=== PATIENT | male | born 1995 | race African-American/Black ===

== ENCOUNTER 2021-07-10 03:26 | Emergency (ER) | payer SELFPAY ==
[~2021-07-10] VITALS: Ht 157.5 cm; Wt 61.0 kg
[2021-07-10] MEDS ORDERED: IBUPROFEN 600MG TABLET PO STA (04:17)
[2021-07-10] MEDS ORDERED: ACETAMINOPHEN WITH CODEINE 300/30MG TABLET PO STA (05:13)
[2021-07-10 05:32] VITALS: BP 117/72
== END 2021-07-10 05:47 | disposition home or self-care (01) ==
LOC: ER 05:22
DX: K02.9 Dental caries, unspecified (principal); Z98.890 Other specified postprocedural states
CPT/HCPCS: 99283